=== PATIENT | male | born 1980 | race Caucasian/White ===

== ENCOUNTER → 2018-05-10 | Outpatient (CLI) | payer BC | END | disposition home or self-care (01) | LOC: US 15:45 | DX: N50.9 Disorder of male genital organs, unspecified (principal); Z98.52 Vasectomy status ==

== ENCOUNTER 2025-05-18 14:14 | Emergency (ER) | payer BC ==
[~2025-05-18] VITALS: Wt 99.4 kg
[2025-05-18 15:07] LABS: BASO # 0.1 10*3/uL (0.0-0.1); BASO % 1.0 % (0.0-1.0); EOS # 0.2 10*3/uL (0.0-0.4); EOS % 1.9 % (1.0-4.0); MEAN CELL VOLUME 92.4 fl (80.0-94.0); MEAN CORPUSCULAR HGB 31.6 pg (27.0-31.0); MEAN PLATELET VOLUME 10.7 fl (9.6-12.3); MONO # 0.8 10*3/uL (0.1-1.0); MONO % 9.0 % (3.0-9.0); NEUT # 5.3 10*3/uL (2.3-7.9); NEUT % 58.7 % (47.0-73.0); NUCLEATED RED BLOOD CELL 0.0 % (0.0-0.0); NUCLEATED RED BLOOD CELL 0.0 10*3/uL (0.0-0.0); PLATELET COUNT AUTOMATED 224 10*3/uL (130-400); RED CELL DISTRI WIDTH 13.1 % (0-14.5)
[2025-05-18 15:28] LABS: BUN 8 mg/dl (9-23); SGPT/ALT 215 U/L (5-49)
[2025-05-18 15:31] LABS: ACT PARTIAL THROMBO TIME 27.1 SECONDS (20.0-32.1)
[2025-05-18] MEDS ORDERED: MG-AL HYDROXIDE/SIMETICONE 30 ML UDC PO STA (15:55)
[2025-05-18] MEDS ORDERED: Dicyclomine Hydrochloride 20 MG/10 ML OSYR PO STA (15:55)
[2025-05-18] MEDS ORDERED: OMEPRAZOLE40 MG PO (16:26)
== END 2025-05-18 16:20 | disposition home or self-care (01) ==
LOC: ED 14:14
PROVIDERS: Nurse Practitioner Family
DX: K21.9 Gastro-esophageal reflux disease without esophagitis (principal)